=== PATIENT | female | born 1935 | race Caucasian/White ===

== ENCOUNTER 2016-08-03 15:55 | Inpatient (IN) | payer MEDICARE, BC ==
[~2016-08-03 15:55] MED LIST: CENTRUM COMPLE1 EACH PO; ECOTRIN325 M1 PO; EQL FISH OIL 1,1 CA1 PO; GLUCOPHAGE1000 MG PO; GLUCOPHAGE500 MG PO
[2016-08-03] MEDS ORDERED: FISH OIL 1,0001 EAC6 PO (16:07)
[2016-08-03] MEDS ORDERED: CENTRUM SILVER1 EAC3 PO (16:07)
[2016-08-03] MEDS ORDERED: GLUCOPHAGE1000 M1 PO (16:07)
[2016-08-03] MEDS ORDERED: ASPIRIN325 M3 PO (16:07)
[2016-08-03 17:29] LABS: BASO % 0.7 % (0-2); BASO ABSOLUTE COUNT 0.1 tho/cmm (0.0-0.2); EOS % 0.1 % (0-7); HCT-HEMATOCRIT 26.4 % (34.0-49.0); IMMATURE GRANULOCYTES ABSOLUTE 0.02 tho/cmm (0-0.03); IMMATURE GRANULOCYTES PERCENT 0.3 % (0-0.3); LYMPH % 10.8 % (20-45); LYMPH ABSOLUTE COUNT 0.8 tho/cmm (0.8-4.5); MCH (MEAN CORPUSCULAR HGB) 21.1 pg (28.0-32.0); MCHC MEAN CORPUSCULAR HGB CONC 30.3 % (32.0-36.0); MCV (MEAN CELL VOLUME) 69.7 fl (82.0-96.0); MEAN PLATELET VOLUME 7.7 cmc (9.4-12.4); MONO % 6.9 % (0-12); MONOCYTE ABSOLUTE COUNT 0.5 tho/cmm (0.0-1.2); NEUTROPHIL ABSOLUTE COUNT 5.9 tho/cmm (1.6-8.0); NEUTROPHIL-AUTOMATED 5.9 tho/cmm (1.6-8.0); NEUTROPHILS % 81.2 % (40-80); PLATELET COUNT 439 tho/cmm (150-450); RED BLOOD COUNT 3.79 mil/cmm (4.00-5.20); RED CELL DISTRIBUTION WIDTH 17.7 % (12.4-16.4); WHITE BLOOD COUNT 7.2 tho/cmm (4.0-10.0)
[2016-08-03 17:50] LABS: ANION GAP 17 mmol/L (0-20); BLOOD UREA NITROGEN 14 mg/dl (6-24); CALCIUM 9.1 mg/dl (8.5-10.5); CARBON DIOXIDE-VENOUS 24 mmol/L (22-32); CHLORIDE 91 mmol/l (96-110); CREATININE 0.67 mg/dl (0.50-1.10); GLUCOSE 146 mg/dL (70-110); POTASSIUM 4.7 mmol/L (3.7-5.1); SODIUM 127 mmol/L (135-145); eGFR VALUE FOR BLACK >90 mL/Min
[2016-08-03 21:34] LABS: C-REACTIVE PROTEIN 0.4 mg/dl (0-0.9)
[2016-08-03 21:37] LABS: TSH-THYROID STIMULATING HORM. 2.92 uIU/ml (0.40-3.80)
--- NOTE | 2016-08-03 22:26 | NUR ---
INITIAL ADULT ASSESSMENT COMPLETED AT 2044. UNABLE TO CHANGE TIME WHEN CHARTING IT TO REFLECT ACTUALY ASSESSMENT TIME.
[2016-08-04 01:04] LABS: BASO % 0.5 % (0-2); EOS % 0.3 % (0-7); IMMATURE GRANULOCYTES ABSOLUTE 0.01 tho/cmm (0-0.03); IMMATURE GRANULOCYTES PERCENT 0.2 % (0-0.3); LYMPH % 14.6 % (20-45); LYMPH ABSOLUTE COUNT 0.9 tho/cmm (0.8-4.5); MCH (MEAN CORPUSCULAR HGB) 21.3 pg (28.0-32.0); MCV (MEAN CELL VOLUME) 68.4 fl (82.0-96.0); MEAN PLATELET VOLUME 7.5 cmc (9.4-12.4); MONO % 9.1 % (0-12); MONOCYTE ABSOLUTE COUNT 0.6 tho/cmm (0.0-1.2); NEUTROPHIL ABSOLUTE COUNT 4.8 tho/cmm (1.6-8.0); NEUTROPHIL-AUTOMATED 4.8 tho/cmm (1.6-8.0); NEUTROPHILS % 75.3 % (40-80); PLATELET COUNT 369 tho/cmm (150-450); RED BLOOD COUNT 3.29 mil/cmm (4.00-5.20); RED CELL DISTRIBUTION WIDTH 17.6 % (12.4-16.4); WHITE BLOOD COUNT 6.4 tho/cmm (4.0-10.0)
[2016-08-04 01:06] LABS: HCT-HEMATOCRIT 22.5 % (34.0-49.0); MCHC MEAN CORPUSCULAR HGB CONC 31.1 % (32.0-36.0)
[2016-08-04 01:23] LABS: ANION GAP 15 mmol/L (0-20); CARBON DIOXIDE-VENOUS 27 mmol/L (22-32); CHLORIDE 88 mmol/l (96-110); CREATININE 0.55 mg/dl (0.50-1.10); GLUCOSE 164 mg/dL (70-110); MAGNESIUM 1.6 mg/dl (1.8-2.6); POTASSIUM 3.9 mmol/L (3.7-5.1); SODIUM 126 mmol/L (135-145); eGFR VALUE FOR BLACK >90 mL/Min
[2016-08-04 01:39] LABS: PROCALCITONIN <0.05 ng/ml (0.05-0.09)
[2016-08-04 02:17] LABS: BLOOD UREA NITROGEN 13 mg/dl (6-24); FERRITIN 11 ng/ml (8-250)
[2016-08-04 03:44] LABS: IRON BINDING CAPACITY 346 ug/dl (250-450)
[2016-08-04 04:00] LABS: IRON <10 ug/dl (37-170)
[2016-08-04 08:28] LABS: HGB-HEMOGLOBIN 8.9 gm/dl (12.0-15.5)
[2016-08-04 08:38] LABS: MAGNESIUM 1.9 mg/dl (1.8-2.6)
[2016-08-04 09:21] LABS: ALB/GLOB RATIO 0.9 (0.8-2.0); BILIRUBIN,DIRECT 0.2 mg/dl (0.0-0.3); BILIRUBIN,INDIRECT 0.8 mg/dL (0.0-1.0)
[2016-08-04 09:39] LABS: INR 1.2 INR (0.9-1.1); PROTHROMBIN TIME 13.5 SECONDS (9.0-13.6)
[2016-08-04 13:23] LABS: URINE SODIUM-RANDOM 108 mmol/L (20-110)
[2016-08-04 16:19] LABS: HCT-HEMATOCRIT 26.5 % (34.0-49.0); HGB-HEMOGLOBIN 8.4 gm/dl (12.0-15.5); MCV (MEAN CELL VOLUME) 70.1 fl (82.0-96.0); RED CELL DISTRIBUTION WIDTH 17.6 % (12.4-16.4)
[2016-08-05 12:10] LABS: ANION GAP 11 mmol/L (0-20); BLOOD UREA NITROGEN 15 mg/dl (6-24); CALCIUM 8.3 mg/dl (8.5-10.5); CARBON DIOXIDE-VENOUS 30 mmol/L (22-32); CHLORIDE 93 mmol/l (96-110); CREATININE 0.62 mg/dl (0.50-1.10); GLUCOSE 107 mg/dL (70-110); POTASSIUM 3.3 mmol/L (3.7-5.1); SODIUM 131 mmol/L (135-145); eGFR VALUE FOR BLACK >90 mL/Min
--- NOTE | 2016-08-05 17:32 | NUR ---
WAS REPLACING PATIENT'S POTASSIUM WITH HEART FAILURE ORDERSET REPLACEMENTS AND PATIENT WAS NPO SO STARTED IV POTASSIUM. PATIENT THEN WENT DOWN FOR A PROCEDURE AFTER STARTING FIRST 20MEQ IV STARTED. WHEN PATIENT RETURNED FROM PROCEDURE THE FIRST BAG OF 20MEQ WAS RESUMED. PATIENT WAS COMPLAINING OF BURNING AROUND IV SO ASKED DR QUINTANA IF IT WAS OK TO GIVE 2ND 20MEQ OF POTASSIUM ORALLY AND SHE SAID THAT WAS FINE. 20MEQ ORALLY GIVEN.
--- NOTE | 2016-08-05 17:39 | NUR ---
NOTIFIED DR RICO DURHAM PATIENTS 1630 SODIUM OF 132. NO NEW ORDERS GIVEN.
[2016-08-06 06:06] LABS: BASO % 0.5 % (0-2); EOS % 1.2 % (0-7); EOSINOPHIL ABSOLUTE COUNT 0.1 tho/cmm (0.0-0.7); HGB-HEMOGLOBIN 7.8 gm/dl (12.0-15.5); IMMATURE GRANULOCYTES ABSOLUTE 0.02 tho/cmm (0-0.03); IMMATURE GRANULOCYTES PERCENT 0.3 % (0-0.3); LYMPH % 16.4 % (20-45); LYMPH ABSOLUTE COUNT 1.3 tho/cmm (0.8-4.5); MCH (MEAN CORPUSCULAR HGB) 22.1 pg (28.0-32.0); MCHC MEAN CORPUSCULAR HGB CONC 31.2 % (32.0-36.0); MCV (MEAN CELL VOLUME) 70.8 fl (82.0-96.0); MEAN PLATELET VOLUME 7.8 cmc (9.4-12.4); MONO % 13.4 % (0-12); NEUTROPHIL ABSOLUTE COUNT 5.2 tho/cmm (1.6-8.0); NEUTROPHIL-AUTOMATED 5.2 tho/cmm (1.6-8.0); NEUTROPHILS % 68.2 % (40-80); PLATELET COUNT 400 tho/cmm (150-450); RED BLOOD COUNT 3.53 mil/cmm (4.00-5.20); RED CELL DISTRIBUTION WIDTH 18.4 % (12.4-16.4); WHITE BLOOD COUNT 7.6 tho/cmm (4.0-10.0)
[2016-08-06 06:22] LABS: ANION GAP 11 mmol/L (0-20); BLOOD UREA NITROGEN 15 mg/dl (6-24); CARBON DIOXIDE-VENOUS 30 mmol/L (22-32); CHLORIDE 94 mmol/l (96-110); CREATININE 0.55 mg/dl (0.50-1.10); GLUCOSE 109 mg/dL (70-110); MAGNESIUM 2.1 mg/dl (1.8-2.6); POTASSIUM 3.4 mmol/L (3.7-5.1); SODIUM 132 mmol/L (135-145); eGFR VALUE FOR BLACK >90 mL/Min
[2016-08-06 07:15] LABS: CALCIUM 8.2 mg/dl (8.5-10.5)
[2016-08-06] MEDS ORDERED: COREG3.125 M1 PO (14:59)
[2016-08-06] MEDS ORDERED: PROTONIX40 M2 PO (14:59)
[2016-08-06] MEDS ORDERED: PRINIVIL5 M1 PO (14:59)
[2016-08-06] MEDS ORDERED: VITAMIN B-121000 MC1 PO (15:00)
[2016-08-06] MEDS ORDERED: LEVAQUIN750 M1 PO (15:00)
[2016-08-06] MEDS ORDERED: ZESTRIL5 M1 PO (15:02)
[2016-08-06] MEDS ORDERED: ASPIR 8181 M1 PO (15:03)
[2016-08-06] MEDS ORDERED: ASPIRIN EC81 MG PO (15:54)
== END 2016-08-06 16:50 | DRG 291 ==
LOC: EDMED 15:55 → EMR2 19:26 → PCUB 20:32
PROVIDERS: Emergency Medicine; Hospitalist; Internal Medicine Cardiovascular Disease; Internal Medicine Nephrology; ADMIT Internal Medicine Cardiovascular Disease
PROC: 30233N1 Transfusion of Nonautologous Red Blood Cells into Peripheral Vein, Percutaneous Approach (ICD-10-PCS; 2016-08-04)
PROC: 0DJD8ZZ Inspection of Lower Intestinal Tract, Via Natural or Artificial Opening Endoscopic (ICD-10-PCS; principal; 2016-08-05)
PROC: 0DB88ZX Excision of Small Intestine, Via Natural or Artificial Opening Endoscopic, Diagnostic (ICD-10-PCS; 2016-08-05)
DX: I50.23 Acute on chronic systolic (congestive) heart failure (principal); J18.9 Pneumonia, unspecified organism; J90 Pleural effusion, not elsewhere classified; E11.9 Type 2 diabetes mellitus without complications; I24.8 Other forms of acute ischemic heart disease; I42.9 Cardiomyopathy, unspecified; K25.9 Gastric ulcer, unspecified as acute or chronic, without hemorrhage or perforation; D50.9 Iron deficiency anemia, unspecified; E87.1 Hypo-osmolality and hyponatremia; K29.70 Gastritis, unspecified, without bleeding; E87.6 Hypokalemia; E53.8 Deficiency of other specified B group vitamins; E78.5 Hyperlipidemia, unspecified; R91.8 Other nonspecific abnormal finding of lung field; K57.30 Diverticulosis of large intestine without perforation or abscess without bleeding; K64.8 Other hemorrhoids; Z79.82 Long term (current) use of aspirin; I25.2 Old myocardial infarction
CPT/HCPCS: J1815; J1940; J1956; J2270; J2405; J3420; J3475; J3480; J7040; P9016

== ENCOUNTER 2016-08-08 15:44 | Inpatient (IN) | payer MEDICARE, BC ==
[~2016-08-08 15:44] MED LIST changes: +ASPIR 8181 M1 PO; +ASPIRIN EC81 MG PO; +ASPIRIN325 M3 PO; +CENTRUM SILVER1 EAC3 PO; +COREG3.125 M1 PO; +FISH OIL 1,0001 EAC6 PO; +GLUCOPHAGE1000 M1 PO; +LEVAQUIN750 M1 PO; +PRINIVIL5 M1 PO; +PROTONIX40 M2 PO; +VITAMIN B-121000 MC1 PO; +ZESTRIL5 M1 PO
[2016-08-08 16:28] LABS: ABG CO2 ARTERIAL 27 mmol/L (21-27); ARTERIAL BLD GAS O2 SATURATION 87 % (95-98); ARTERIAL BLOOD GAS PCO2 39 mmHg (32-45); ARTERIAL PO2 52 mmHg (70-100); BICARBONATE 26 mmol/L (21-28); BLOOD GAS BASE EXCESS 2 mM/L (-/+3); PH 7.44 Units (7.35-7.45)
[2016-08-08 16:47] LABS: BASO % 0.3 % (0-2); EOS % 0.3 % (0-7); HCT-HEMATOCRIT 29.1 % (34.0-49.0); HGB-HEMOGLOBIN 9.1 gm/dl (12.0-15.5); IMMATURE GRANULOCYTES ABSOLUTE 0.02 tho/cmm (0-0.03); IMMATURE GRANULOCYTES PERCENT 0.3 % (0-0.3); LYMPH % 9.6 % (20-45); LYMPH ABSOLUTE COUNT 0.7 tho/cmm (0.8-4.5); MCH (MEAN CORPUSCULAR HGB) 22.1 pg (28.0-32.0); MCHC MEAN CORPUSCULAR HGB CONC 31.3 % (32.0-36.0); MCV (MEAN CELL VOLUME) 70.8 fl (82.0-96.0); MONO % 8.7 % (0-12); MONOCYTE ABSOLUTE COUNT 0.6 tho/cmm (0.0-1.2); NEUTROPHIL ABSOLUTE COUNT 5.7 tho/cmm (1.6-8.0); NEUTROPHIL-AUTOMATED 5.7 tho/cmm (1.6-8.0); NEUTROPHILS % 80.8 % (40-80); PLATELET COUNT 505 tho/cmm (150-450); RED BLOOD COUNT 4.11 mil/cmm (4.00-5.20); RED CELL DISTRIBUTION WIDTH 18.3 % (12.4-16.4)
[2016-08-08 17:04] LABS: ALB/GLOB RATIO 0.8 (0.8-2.0); ALBUMIN 2.9 g/dl (3.5-5.0); ALKALINE PHOSPHATASE 81 U/L (33-138); ALT/SGPT 20 U/L (12-78); ANION GAP 13 mmol/L (0-20); AST/SGOT 15 U/L (10-40); BILIRUBIN,TOTAL 0.9 mg/dl (0-1.5); BLOOD UREA NITROGEN 19 mg/dl (6-24); CALCIUM 8.6 mg/dl (8.5-10.5); CARBON DIOXIDE-VENOUS 27 mmol/L (22-32); CHLORIDE 85 mmol/l (96-110); CREATININE 0.56 mg/dl (0.50-1.10); GLUCOSE 210 mg/dL (70-110); POTASSIUM 4.4 mmol/L (3.7-5.1); SODIUM 121 mmol/L (135-145); eGFR VALUE FOR BLACK >90 mL/Min
[2016-08-08 17:18] LABS: PROCALCITONIN <0.05 ng/ml (0.05-0.09)
[2016-08-08 18:05] LABS: URINE BILIRUBIN NEGATIVE (NEG); URINE BLOOD NEGATIVE (NEG); URINE GLUCOSE (UA) NEGATIVE (NEG); URINE KETONE NEGATIVE (NEG); URINE LEUKOCYTE ESTERASE NEGATIVE (NEG); URINE NITRITE NEGATIVE (NEG); URINE PROTEIN NEGATIVE (NEG)
[2016-08-08 18:07] LABS: URINE APPEARANCE CLEAR; URINE COLOR YELLOW
[2016-08-09 05:02] LABS: BASO % 0.4 % (0-2); EOS % 1.4 % (0-7); EOSINOPHIL ABSOLUTE COUNT 0.1 tho/cmm (0.0-0.7); HCT-HEMATOCRIT 27.5 % (34.0-49.0); HGB-HEMOGLOBIN 8.6 gm/dl (12.0-15.5); IMMATURE GRANULOCYTES ABSOLUTE 0.01 tho/cmm (0-0.03); IMMATURE GRANULOCYTES PERCENT 0.1 % (0-0.3); LYMPH ABSOLUTE COUNT 1.7 tho/cmm (0.8-4.5); MCH (MEAN CORPUSCULAR HGB) 21.9 pg (28.0-32.0); MCHC MEAN CORPUSCULAR HGB CONC 31.3 % (32.0-36.0); MCV (MEAN CELL VOLUME) 70.2 fl (82.0-96.0); MONO % 11.6 % (0-12); MONOCYTE ABSOLUTE COUNT 0.8 tho/cmm (0.0-1.2); NEUTROPHIL ABSOLUTE COUNT 4.3 tho/cmm (1.6-8.0); NEUTROPHIL-AUTOMATED 4.3 tho/cmm (1.6-8.0); NEUTROPHILS % 62.5 % (40-80); PLATELET COUNT 488 tho/cmm (150-450); RED BLOOD COUNT 3.92 mil/cmm (4.00-5.20); RED CELL DISTRIBUTION WIDTH 18.4 % (12.4-16.4)
[2016-08-09 05:12] LABS: ANION GAP 11 mmol/L (0-20); BLOOD UREA NITROGEN 16 mg/dl (6-24); CALCIUM 8.2 mg/dl (8.5-10.5); CARBON DIOXIDE-VENOUS 30 mmol/L (22-32); CHLORIDE 86 mmol/l (96-110); CREATININE 0.55 mg/dl (0.50-1.10); GLUCOSE 132 mg/dL (70-110); POTASSIUM 4.1 mmol/L (3.7-5.1); SODIUM 123 mmol/L (135-145); eGFR VALUE FOR BLACK >90 mL/Min
[2016-08-09 17:11] LABS: URINE APPEARANCE CLEAR; URINE BILIRUBIN NEGATIVE (NEG); URINE BLOOD NEGATIVE (NEG); URINE COLOR COLORLESS; URINE GLUCOSE (UA) NEGATIVE (NEG); URINE KETONE NEGATIVE (NEG); URINE LEUKOCYTE ESTERASE NEGATIVE (NEG); URINE NITRITE NEGATIVE (NEG); URINE PROTEIN NEGATIVE (NEG); URINE SPECIFIC GRAVITY 1.005 (1.003-1.030)
[2016-08-09 17:18] LABS: URINE EPITHELIAL CELLS 0 /[HPF] (0-10); URINE RBC 0 /[HPF] (0-5); URINE WBC 0 /[HPF] (0-5)
[2016-08-09 17:20] LABS: URINE SODIUM-RANDOM 27 mmol/L (20-110)
[2016-08-09 17:23] LABS: URINE CREATININE-RANDOM <30 mg/dl (30-125); URINE POTASSIUM RANDOM 11 mmol/L (12-62)
[2016-08-10 05:21] LABS: BASO % 0.7 % (0-2); EOS % 0.8 % (0-7); EOSINOPHIL ABSOLUTE COUNT 0.1 tho/cmm (0.0-0.7); HGB-HEMOGLOBIN 11.8 gm/dl (12.0-15.5); IMMATURE GRANULOCYTES ABSOLUTE 0.02 tho/cmm (0-0.03); IMMATURE GRANULOCYTES PERCENT 0.3 % (0-0.3); LYMPH % 11.3 % (20-45); LYMPH ABSOLUTE COUNT 0.7 tho/cmm (0.8-4.5); MCHC MEAN CORPUSCULAR HGB CONC 32.8 % (32.0-36.0); MCV (MEAN CELL VOLUME) 73.6 fl (82.0-96.0); MEAN PLATELET VOLUME 7.9 cmc (9.4-12.4); MONOCYTE ABSOLUTE COUNT 0.9 tho/cmm (0.0-1.2); NEUTROPHIL ABSOLUTE COUNT 4.4 tho/cmm (1.6-8.0); NEUTROPHIL-AUTOMATED 4.4 tho/cmm (1.6-8.0); NEUTROPHILS % 72.9 % (40-80); PLATELET COUNT 409 tho/cmm (150-450); RED BLOOD COUNT 4.89 mil/cmm (4.00-5.20); RED CELL DISTRIBUTION WIDTH 19.7 % (12.4-16.4); WHITE BLOOD COUNT 6.1 tho/cmm (4.0-10.0)
[2016-08-10 05:32] LABS: MCH (MEAN CORPUSCULAR HGB) 24.1 pg (28.0-32.0)
[2016-08-10 05:41] LABS: ANION GAP 13 mmol/L (0-20); BLOOD UREA NITROGEN 13 mg/dl (6-24); CALCIUM 8.3 mg/dl (8.5-10.5); CARBON DIOXIDE-VENOUS 33 mmol/L (22-32); CHLORIDE 92 mmol/l (96-110); CREATININE 0.71 mg/dl (0.50-1.10); GLUCOSE 136 mg/dL (70-110); MAGNESIUM 1.8 mg/dl (1.8-2.6); POTASSIUM 3.8 mmol/L (3.7-5.1); SODIUM 134 mmol/L (135-145); eGFR VALUE FOR BLACK >90 mL/Min
[2016-08-11 04:53] LABS: HGB-HEMOGLOBIN 11.2 gm/dl (12.0-15.5); PLATELET COUNT 441 tho/cmm (150-450)
[2016-08-11 04:59] LABS: ANION GAP 10 mmol/L (0-20); BLOOD UREA NITROGEN 14 mg/dl (6-24); CALCIUM 8.3 mg/dl (8.5-10.5); CARBON DIOXIDE-VENOUS 33 mmol/L (22-32); CHLORIDE 96 mmol/l (96-110); CREATININE 0.72 mg/dl (0.50-1.10); GLUCOSE 148 mg/dL (70-110); POTASSIUM 3.4 mmol/L (3.7-5.1); SODIUM 136 mmol/L (135-145); eGFR VALUE FOR BLACK 90 mL/Min
[2016-08-12 05:26] LABS: HCT-HEMATOCRIT 35.4 % (34.0-49.0); HGB-HEMOGLOBIN 11.5 gm/dl (12.0-15.5); MCV (MEAN CELL VOLUME) 74.7 fl (82.0-96.0); RED CELL DISTRIBUTION WIDTH 21.2 % (12.4-16.4)
[2016-08-12 05:39] LABS: ANION GAP 10 mmol/L (0-20); BLOOD UREA NITROGEN 16 mg/dl (6-24); CALCIUM 8.8 mg/dl (8.5-10.5); CARBON DIOXIDE-VENOUS 31 mmol/L (22-32); CHLORIDE 96 mmol/l (96-110); CREATININE 0.73 mg/dl (0.50-1.10); GLUCOSE 147 mg/dL (70-110); SODIUM 133 mmol/L (135-145); eGFR VALUE FOR BLACK 88 mL/Min
[2016-08-13 06:00] LABS: HCT-HEMATOCRIT 36.5 % (34.0-49.0); HGB-HEMOGLOBIN 11.8 gm/dl (12.0-15.5); MCV (MEAN CELL VOLUME) 75.3 fl (82.0-96.0); PLATELET COUNT 436 tho/cmm (150-450)
[2016-08-13 06:13] LABS: ANION GAP 11 mmol/L (0-20); BLOOD UREA NITROGEN 21 mg/dl (6-24); CALCIUM 8.7 mg/dl (8.5-10.5); CARBON DIOXIDE-VENOUS 29 mmol/L (22-32); CHLORIDE 95 mmol/l (96-110); CREATININE 0.68 mg/dl (0.50-1.10); GLUCOSE 138 mg/dL (70-110); POTASSIUM 4.4 mmol/L (3.7-5.1); SODIUM 131 mmol/L (135-145); eGFR VALUE FOR BLACK >90 mL/Min
[2016-08-13] MEDS ORDERED: TOPROL XL25 M1 PO (11:50)
[2016-08-13] MEDS ORDERED: COZAAR25 M1 PO (11:50)
[2016-08-13] MEDS ORDERED: POTASSIUM CHLO20 ME3 PO (11:51)
[2016-08-13] MEDS ORDERED: AMILORIDE HCL5 M1 PO (11:51)
[2016-08-13] MEDS ORDERED: DEMADEX20 M1 PO (11:53)
[2016-08-13] MEDS ORDERED: ATIVAN0.5 M1 PO (11:55)
[2016-08-13] MEDS ORDERED: MORPHINE S20 MG/1 M1 PO (11:55)
[2016-08-13] MEDS ORDERED: SENNA S TABLET1 EACH PO (11:57)
--- NOTE | 2016-08-13 12:40 | NUR ---
PT UP IN CHAIR, SON, SAMANTHA AT BEDSIDE. MAKING PLANS FOR DC TO HOME W [facility]. SON ASKING ABOUT LIFE LINE BEING SET UP AFTER HOME. [facility] AWARE, FROM CONVERSATION 08-12-16, TO HELP WITH THIS. SPOKE WITH MAKAYLA, BACTERIOLOGIST DAIRY, SHE CONFIRMS HOSPICE SW WILL HELP PT AND FAMILY GET A LIFE LINE ARRANGED. SW VISIT WILL BE IN THE NEXT FEW DAYS. PT HAPPY WITH PLAN, FAMILY SUPPORTIVE OF PLAN. SUPPORT GIVEN.
== END 2016-08-13 15:30 | disposition hospice, home (50) | DRG 291 ==
LOC: EDMED 15:44 → EMR2 18:44 → PCUB 20:35
PROVIDERS: Emergency Medicine; Internal Medicine; Internal Medicine Cardiovascular Disease; ADMIT Hospitalist
PROC: 5A09357 Assistance with Respiratory Ventilation, Less than 24 Consecutive Hours, Continuous Positive Airway Pressure (ICD-10-PCS; principal; 2016-08-08)
DX: I11.0 Hypertensive heart disease with heart failure (principal); J18.9 Pneumonia, unspecified organism; E46 Unspecified protein-calorie malnutrition; I42.9 Cardiomyopathy, unspecified; E11.9 Type 2 diabetes mellitus without complications; K25.9 Gastric ulcer, unspecified as acute or chronic, without hemorrhage or perforation; D50.9 Iron deficiency anemia, unspecified; E87.1 Hypo-osmolality and hyponatremia; E53.8 Deficiency of other specified B group vitamins; I50.23 Acute on chronic systolic (congestive) heart failure; I25.2 Old myocardial infarction; Z79.84 Long term (current) use of oral hypoglycemic drugs; I25.10 Atherosclerotic heart disease of native coronary artery without angina pectoris; E78.5 Hyperlipidemia, unspecified; Z66 Do not resuscitate; Z79.82 Long term (current) use of aspirin; Z68.25 Body mass index [BMI] 25.0-25.9, adult
CPT/HCPCS: J1650; J1815; J1940; J2405; P9016